=== PATIENT | male | born 1945 | race Caucasian/White ===

== ENCOUNTER 2021-05-13 11:29 | Inpatient (IN) | payer MEDICARE ==
[2021-05-13 12:44] LABS: #Eosinphils 0.1 thou/uL (0.0-0.7); #Lymphocytes 1.8 thou/uL (1.20-3.40); #Monocytes 0.4 thou/uL (0.11-0.59); #Neutrophils 3.9 thou/uL (1.40-6.50); %Basophils 0.2 % (0.0-1.0); %Eosinophils 1.7 % (0.0-10.0); %Lymphocytes 29.5 % (21.0-51.0); %Monocytes 6.8 % (0.0-10.0); %Neutrophils 61.8 % (42.0-75.0); Hemoglobin 12.2 g/dL (14.0-18.0); Mean Corpuscular HGB CONC 34.8 g/dL (32.0-36.0); Mean Corpuscular Hemoglobin 34.1 pg (27.0-31.0); Mean Corpuscular Volume 97.9 fL (78.0-98.0); Mean Platelet Volume 7.1 fL (7.4-10.4); Platelet Count 265 thou/uL (130-400); RBC Distribution Width 10.9 % (11.5-14.5); Red Blood Cell (RBC) Count 3.57 mill/uL (4.70-6.10); White Blood Cell (WBC) Count 6.2 thou/uL (4.8-10.8)
[2021-05-13 13:05] LABS: ALT (SGPT) 17 U/L (8-55); AST (SGOT) 20 U/L (5-34); Albumin 4.1 g/dL (3.4-4.8); Alkaline Phosphatase 85 U/L (40-110); Anion Gap 15 mmol/L (10-20); BUN (Urea Nitrogen) 17 mg/dL (8.4-25.7); Bilirubin, Total 0.5 mg/dL (0.2-1.2); Calc. Creatinine Clearance 0 mL/min (70-130); Calcium 8.9 mg/dL (7.8-10.44); Carbon Dioxide 24 mmol/L (23-31); Chloride 102 mmol/L (98-107); Globulin 2.8 g/dL (2.4-3.5); Glucose 110 mg/dL (83-110); Potassium 4.9 mmol/L (3.5-5.1); Protein, Total 6.9 g/dL (5.8-8.1); Sodium 136 mmol/L (136-145)
[2021-05-13 16:46] LABS: Troponin I Less than 0.010 ng/mL (< 0.028)
[2021-05-13] MEDS ORDERED: Ondansetron ODT 4 MG TAB PO PRN (16:55)
[2021-05-13] MEDS ORDERED: Acetaminophen 500 MG TAB PO PRN (16:55)
[2021-05-13] MEDS ORDERED: Nitroglycerin 0.4 MG TAB (25 Tab Bottle) SL PRN (16:55)
[2021-05-13] MEDS ORDERED: hydrALAZINE 20 MG/ML VIAL SLOW IVP PRN (16:55)
[2021-05-13] MEDS ORDERED: Ondansetron PF 4 MG/2 ML Vial IVP PRN (16:55)
[2021-05-13 17:14] VITALS: BMI 23.2
[2021-05-13 19:00] LABS: Troponin I Less than 0.010 ng/mL (< 0.028)
[2021-05-13] MEDS: Famotidine 20 MG TAB PO SCH (20:17)
[2021-05-14 05:14] LABS: #Eosinphils 0.2 thou/uL (0.0-0.7); #Lymphocytes 1.7 thou/uL (1.20-3.40); #Monocytes 0.5 thou/uL (0.11-0.59); %Basophils 0.3 % (0.0-1.0); %Eosinophils 3.3 % (0.0-10.0); %Lymphocytes 31.6 % (21.0-51.0); %Monocytes 9.5 % (0.0-10.0); %Neutrophils 55.3 % (42.0-75.0); Hemoglobin 12.1 g/dL (14.0-18.0); Mean Corpuscular HGB CONC 35.3 g/dL (32.0-36.0); Mean Corpuscular Hemoglobin 34.4 pg (27.0-31.0); Mean Corpuscular Volume 97.6 fL (78.0-98.0); Mean Platelet Volume 7.1 fL (7.4-10.4); Platelet Count 245 thou/uL (130-400); Red Blood Cell (RBC) Count 3.51 mill/uL (4.70-6.10); White Blood Cell (WBC) Count 5.5 thou/uL (4.8-10.8)
[2021-05-14 05:38] LABS: Anion Gap 12 mmol/L (10-20); BUN (Urea Nitrogen) 16 mg/dL (8.4-25.7); Calc. Creatinine Clearance 73 mL/min (70-130); Calcium 8.9 mg/dL (7.8-10.44); Carbon Dioxide 24 mmol/L (23-31); Cardiac Risk 2.6 (Less than 4.5); Chloride 105 mmol/L (98-107); Cholesterol 137 mg/dl (< 200 Desired); Glucose 93 mg/dL (83-110); HDL Cholesterol 52 mg/dL (>60 Neg Risk); LDL Cholesterol, Calculated 69 mg/dL; Potassium 4.5 mmol/L (3.5-5.1); Sodium 136 mmol/L (136-145); Triglycerides 79 mg/dL (Less than 150)
[2021-05-14] MEDS: Famotidine 20 MG TAB PO SCH ×2 (07:27→20:55)
[2021-05-14] MEDS ORDERED: Regadenoson 0.4 MG/5 ML SYRINGE ONE (08:52)
[2021-05-14] MEDS ORDERED: Aspirin Chewable 81 MG TAB PO SCH (09:00)
[2021-05-14] MEDS ORDERED: Communication Order-Pharmacy FS SCH ×2 (15:30→17:15)
[2021-05-14] MEDS: Atorvastatin Calcium 40 MG TAB PO SCH (20:54)
[2021-05-14] MEDS: Lisinopril 20 MG TAB PO SCH (20:55)
[2021-05-14] MEDS: Tamsulosin HCl 0.4 MG CAP PO SCH (20:55)
[2021-05-14] MEDS: Loratadine 10 MG TAB PO SCH (20:55)
[2021-05-14] MEDS: NIFEdipine XL 60 MG TAB PO SCH (20:55)
[2021-05-15] MEDS ORDERED: Sodium Chloride 0.9% 1,000 ML IV SCH ×2 (00:01→06:00)
[2021-05-15] MEDS: Aspirin 325 MG TAB PO SCH (06:01)
[2021-05-15] MEDS: Levothyroxine Sodium 75 MCG TAB PO SCH (06:01)
[2021-05-15] MEDS: Ezetimibe 10 MG TAB PO SCH (06:02)
[2021-05-15] MEDS: Fluticasone Propionate Nasal Spray 16 gm Bottle NASAL SCH (06:02)
[2021-05-15] MEDS: Loratadine 10 MG TAB PO SCH ×2 (06:03→20:40)
[2021-05-15] MEDS: Lisinopril 20 MG TAB PO SCH ×2 (06:03→20:41)
[2021-05-15] MEDS ORDERED: Lidocaine 1% (PF) 30 ML VIAL ONE (06:45)
[2021-05-15] MEDS ORDERED: Midazolam HCl 2 mg/2 ml Vial ONE (07:43)
[2021-05-15] MEDS ORDERED: Fentanyl 100 MCG/2 ML VIAL ONE (07:43)
[2021-05-15] MEDS ORDERED: Atropine Sulfate 1 mg/10 ml Syringe ONE ×3 (08:33→11:36)
[2021-05-15] MEDS ORDERED: Ondansetron PF 4 MG/2 ML Vial ONE (08:33)
[2021-05-15] MEDS ORDERED: Nitroglycerin 100MG/250ML BOT 250 ML ONE (08:33)
[2021-05-15] MEDS ORDERED: Heparin 10,000 UNITS/ 10 ML VIAL ONE ×2 (08:33→09:21)
[2021-05-15] MEDS ORDERED: Clopidogrel Bisulfate 300 MG TAB ONE (09:05)
[2021-05-15] MEDS ORDERED: Iopamidol 370 76% 100 ML VIAL ONE (09:22)
[2021-05-15] MEDS ORDERED: Iopamidol 370 76% 50 ML VIAL FS ONE (09:22)
[2021-05-15] MEDS: NIFEdipine XL 60 MG TAB PO SCH (20:40)
[2021-05-15] MEDS: Atorvastatin Calcium 40 MG TAB PO SCH (20:41)
[2021-05-15] MEDS: Tamsulosin HCl 0.4 MG CAP PO SCH (20:42)
[2021-05-15] MEDS: Famotidine 20 MG TAB PO SCH (20:42)
[2021-05-16 05:15] LABS: #Eosinphils 0.1 thou/uL (0.0-0.7); #Lymphocytes 1.4 thou/uL (1.20-3.40); #Monocytes 0.6 thou/uL (0.11-0.59); #Neutrophils 3.4 thou/uL (1.40-6.50); %Basophils 0.4 % (0.0-1.0); %Eosinophils 2.2 % (0.0-10.0); %Lymphocytes 25.2 % (21.0-51.0); %Monocytes 10.8 % (0.0-10.0); %Neutrophils 61.3 % (42.0-75.0); Mean Corpuscular HGB CONC 35.4 g/dL (32.0-36.0); Mean Corpuscular Hemoglobin 34.8 pg (27.0-31.0); Mean Corpuscular Volume 98.5 fL (78.0-98.0); Mean Platelet Volume 7.5 fL (7.4-10.4); Platelet Count 233 thou/uL (130-400); RBC Distribution Width 11.1 % (11.5-14.5); Red Blood Cell (RBC) Count 3.44 mill/uL (4.70-6.10); White Blood Cell (WBC) Count 5.6 thou/uL (4.8-10.8)
[2021-05-16] MEDS: Levothyroxine Sodium 75 MCG TAB PO SCH (05:23)
[2021-05-16 05:45] LABS: ALT (SGPT) 15 U/L (8-55); AST (SGOT) 17 U/L (5-34); Albumin 3.5 g/dL (3.4-4.8); Alkaline Phosphatase 82 U/L (40-110); Anion Gap 11 mmol/L (10-20); BUN (Urea Nitrogen) 18 mg/dL (8.4-25.7); Bilirubin, Total 0.3 mg/dL (0.2-1.2); Calc. Creatinine Clearance 73 mL/min (70-130); Calcium 8.5 mg/dL (7.8-10.44); Carbon Dioxide 24 mmol/L (23-31); Chloride 108 mmol/L (98-107); Globulin 2.5 g/dL (2.4-3.5); Glucose 98 mg/dL (83-110); Potassium 4.4 mmol/L (3.5-5.1); Sodium 139 mmol/L (136-145)
[2021-05-16] MEDS: Aspirin 325 MG TAB PO SCH (08:35)
[2021-05-16] MEDS: Fluticasone Propionate Nasal Spray 16 gm Bottle NASAL SCH (08:36)
[2021-05-16] MEDS: Loratadine 10 MG TAB PO SCH (08:36)
[2021-05-16] MEDS: Lisinopril 20 MG TAB PO SCH (08:36)
[2021-05-16] MEDS: Ezetimibe 10 MG TAB PO SCH (08:36)
[2021-05-16] MEDS ORDERED: Clopidogrel Bisulfate 75 MG TAB PO SCH (09:00)
[2021-05-16 12:02] VITALS: BP 140/65; TEMP 98.4
== END 2021-05-16 12:35 | disposition home or self-care (01) | DRG 247 ==
LOC: ERS 11:29 → 2SW 14:22 → OBSVTOIN 05-14 15:39
PROVIDERS: ADMIT Family Medicine; ATTEND Internal Medicine
PROC: 027034Z Dilation of Coronary Artery, One Artery with Drug-eluting Intraluminal Device, Percutaneous Approach (ICD-10-PCS; principal; 2021-05-15)
PROC: 4A023N7 Measurement of Cardiac Sampling and Pressure, Left Heart, Percutaneous Approach (ICD-10-PCS; 2021-05-15)
PROC: B2111ZZ Fluoroscopy of Multiple Coronary Arteries using Low Osmolar Contrast (ICD-10-PCS; 2021-05-15)
PROC: B2131ZZ Fluoroscopy of Multiple Coronary Artery Bypass Grafts using Low Osmolar Contrast (ICD-10-PCS; 2021-05-15)
PROC: B2151ZZ Fluoroscopy of Left Heart using Low Osmolar Contrast (ICD-10-PCS; 2021-05-15)
DX: I25.119 Atherosclerotic heart disease of native coronary artery with unspecified angina pectoris (principal); N17.9 Acute kidney failure, unspecified; T82.898A Other specified complication of vascular prosthetic devices, implants and grafts, initial encounter; E78.5 Hyperlipidemia, unspecified; I10 Essential (primary) hypertension; E03.9 Hypothyroidism, unspecified; Y83.2 Surgical operation with anastomosis, bypass or graft as the cause of abnormal reaction of the patient, or of later complication, without mention of misadventure at the time of the procedure; Z98.42 Cataract extraction status, left eye; Z98.41 Cataract extraction status, right eye; Z95.1 Presence of aortocoronary bypass graft; Z79.82 Long term (current) use of aspirin; Z79.899 Other long term (current) drug therapy; Z88.0 Allergy status to penicillin
CPT/HCPCS: 36415; 71045; 76942; 78452; 80048; 80053; 80061; 84484; 85025; 85347; 92928; 93005; 93010; 93017; 93306; 93459; 93798; 99152; 99153; A9500; C1769; C9600; G0378; J0461; J1644; J2001; J2250; J2405; J2785; J3010; Q9967

== ENCOUNTER 2021-12-30 12:25 | Outpatient (CLI) | payer MEDICARE | END 2021-12-30 12:26 | disposition home or self-care (01) | LOC: BICULT 12:25 | PROVIDERS: ATTEND Family Medicine | DX: R09.89 Other specified symptoms and signs involving the circulatory and respiratory systems (principal) | CPT/HCPCS: 93880 ==